=== PATIENT | female | born 1975 | race African-American/Black ===

== ENCOUNTER 2018-11-16 01:59 | Inpatient (IN) ==
[2018-11-16] MEDS ORDERED: ONDANSETRON 4 MG/2 ML VIAL IV PRN (02:25)
[2018-11-16] MEDS ORDERED: BUTORPHANOL 2 MG/ML VIAL IV PRN (02:25)
[2018-11-16 02:59] LABS: Basophils % 0.3 % (0.0-0.8); Eosinophils # 0.3 10*3/uL (0.0-0.87); Eosinophils % 1.9 % (0.00-10.9); Hematocrit 36.1 VOL% (35.7-47.0); Hemoglobin 11.5 GM/DL (12.0-16.0); Immature Granulocytes % 0.9 %; Immature Granulocytes Absolute 0.13 #; Lymphocytes # 2.5 10*3/uL (1.4-4.0); Lymphocytes % 16.7 % (21.3-54.2); Mean Corpuscular HGB Conc 31.9 GM/DL (32-36); Mean Corpuscular Hemoglobin 27 PG (27-34); Mean Corpuscular Volume 84.5 FL (87-102); Mean Platelet Volume 9.2 FL (9.6-12.0); Monocytes # 0.6 10*3/uL (0.11-0.8); Monocytes % 3.9 % (1.7-12.7); Neutrophils # 11.4 10*3/uL (1.4-7.4); Neutrophils % 76.3 % (38.7-73.9); Platelet Count 259 T/CUMM (130-400); Red Blood Count 4.27 MC/CUMM (3.8-5.5); Red Cell Distribution Width 14.7 % (9.3-17.3); White Blood Count 14.9 T/CUMM (4-12)
[2018-11-16 03:31] LABS: Alanine Aminotransferase 16 U/L (13-56); Albumin 2.7 G/DL (3.4-5.0); Alkaline Phosphatase 104 U/L (45-117); Aspartate Amino Transferase 16 U/L (0-37); Bilirubin,Total < 0.39 MG/DL (0.2-1.0); Blood Urea Nitrogen 4 MG/DL (7-18); Calcium 8.9 MG/DL (8.5-10.1); Glucose 140 MG/DL (74-106); Sodium 136 MMOL/L (136-145); Uric Acid 3.5 MG/DL (2.6-6.0)
[2018-11-16] MEDS: LACTATED RINGERS 1,000 ML IV SCH ×2 (04:11→12:12)
[2018-11-16] MEDS ORDERED: AMPICILLIN 2,000 MG VIAL ONE (04:30)
[2018-11-16] MEDS ORDERED: AMPICILLIN INJ 2,000 MG in SODIUM CHLORIDE 0.9% 100 ML IV SCH (04:30)
[2018-11-16] MEDS ORDERED: OXYTOCIN/LR 30 UNIT/1,000 ML BAG IV ONE (06:58)
[2018-11-16] MEDS ORDERED: METHYLERGONOVINE 0.2 MG/1 ML AMP ONE (07:19)
[2018-11-16] MEDS ORDERED: LIDOCAINE 1% 50 ML VIAL ONE (07:19)
[2018-11-16] MEDS: AMPICILLIN INJ 1,000 MG in SODIUM CHLORIDE 0.9% 100 ML IV SCH ×2 (08:34→12:33)
[2018-11-16] MEDS ORDERED: miSOPROStol 200 MCG TABLET RECTAL ONE (08:50)
[2018-11-16] MEDS ORDERED: miSOPROStol 200 MCG TABLET ONE (08:52)
[2018-11-16] MEDS ORDERED: OXYTOCIN/LR 20 UNIT/1,000 ML BAG IV ONE ×2 (15:56)
[2018-11-16] MEDS ORDERED: BISACODYL 10 MG SUPP RECTAL PRN (17:06)
[2018-11-16] MEDS ORDERED: oxyCODONE/ACETAMINOPHEN 5-325 MG TABLET PO PRN (17:06)
[2018-11-16] MEDS ORDERED: DIPH/TET/ACEL PERT BOOSTER VACCINE 0.5 ML VIAL IM ONE (17:06)
[2018-11-16] MEDS ORDERED: MEASLES/MUMPS/RUBELLA VACCINE 0.5 ML VIAL SUBCUT ONE (17:06)
[2018-11-16] MEDS ORDERED: RHO(D) IMMUNE GLOBULIN 300 MCG SYRINGE IM ONE (17:06)
[2018-11-16] MEDS ORDERED: WITCH HAZEL PADS 100/JAR TOP PRN (17:06)
[2018-11-16] MEDS ORDERED: ACETAMINOPHEN 325 MG TABLET PO PRN (17:06)
[2018-11-16] MEDS ORDERED: LANOLIN 50% CREAM 0.3 OZ TUBE TOP PRN (17:06)
[2018-11-16] MEDS ORDERED: BENZOCAINE 20%/MENTHOL 0.5% SPRAY 56 GM CAN TOP PRN (17:06)
[2018-11-16] MEDS ORDERED: HYDROCORTISONE 2.5% RECTAL CREAM 30 GM TUBE TOP PRN (17:06)
[2018-11-16] MEDS: oxyCODONE/ACETAMINOPHEN 5-325 MG TABLET PO PRN (17:10)
[2018-11-16] MEDS: IBUPROFEN 800 MG TABLET PO PRN (19:54)
[2018-11-16] MEDS: DOCUSATE SODIUM 100 MG CAPSULE PO SCH (20:06)
[2018-11-16] MEDS: POTASSIUM CHLORIDE 20 MEQ TABLET PO SCH (20:06)
[2018-11-17 06:50] LABS: Basophils % 0.2 % (0.0-0.8); Eosinophils # 0.4 10*3/uL (0.0-0.87); Hematocrit 33.8 VOL% (35.7-47.0); Immature Granulocytes % 0.5 %; Immature Granulocytes Absolute 0.06 #; Lymphocytes # 3.1 10*3/uL (1.4-4.0); Lymphocytes % 24.8 % (21.3-54.2); Mean Corpuscular HGB Conc 32.5 GM/DL (32-36); Mean Corpuscular Hemoglobin 27 PG (27-34); Mean Corpuscular Volume 84.3 FL (87-102); Monocytes # 0.6 10*3/uL (0.11-0.8); Monocytes % 4.9 % (1.7-12.7); Neutrophils # 8.2 10*3/uL (1.4-7.4); Neutrophils % 66.6 % (38.7-73.9); Platelet Count 247 T/CUMM (130-400); Red Blood Count 4.01 MC/CUMM (3.8-5.5); Red Cell Distribution Width 14.8 % (9.3-17.3); White Blood Count 12.3 T/CUMM (4-12)
[2018-11-17] MEDS: oxyCODONE/ACETAMINOPHEN 5-325 MG TABLET PO PRN ×3 (07:47→19:56)
[2018-11-17] MEDS: IBUPROFEN 800 MG TABLET PO PRN ×2 (07:47→19:55)
[2018-11-17] MEDS: POTASSIUM CHLORIDE 20 MEQ TABLET PO SCH ×3 (08:00→20:09)
[2018-11-17] MEDS: DOCUSATE SODIUM 100 MG CAPSULE PO SCH ×3 (08:00→20:08)
[2018-11-18 07:16] VITALS: BP 149/78
[2018-11-18] MEDS: IBUPROFEN 800 MG TABLET PO PRN (08:48)
[2018-11-18] MEDS: DOCUSATE SODIUM 100 MG CAPSULE PO SCH (08:52)
[2018-11-18] MEDS: POTASSIUM CHLORIDE 20 MEQ TABLET PO SCH (08:53)
== END 2018-11-18 11:25 | disposition home or self-care (01) | DRG 560 ==
LOC: N.LDOUT 01:59 → N.LD 02:00 → N.OB 17:01
PROVIDERS: ADMIT Obstetrics & Gynecology; ATTEND Obstetrics & Gynecology